=== PATIENT | female | born 1945 | race Caucasian/White ===

== ENCOUNTER → 2019-08-13 | Outpatient (CLI) | payer MEDICARE, BC ==
[2019-08-13 12:52] LABS: APPEARANCE,URINE SLIGHTLY-CLOUDY; BILIRUBIN,URINE NEGATIVE (NEGATIVE); COLOR,URINE YELLOW; GLUCOSE, URINE NEGATIVE (NEGATIVE); KETONES,URINE NEGATIVE (NEGATIVE); LEUKOCYTE ESTERASE,URINE LARGE (NEGATIVE); NITRITE,URINE NEGATIVE (NEGATIVE); PROTEIN,URINE NEGATIVE (NEGATIVE); URINE SPECIFIC GRAVITY 1.023; UROBILINOGEN,URINE NEGATIVE mg/dL (<2.0)
[2019-08-13 12:58] LABS: ABSOLUTE BASOPHILS # (AUTO) 0.1 10^3/uL (0.0-0.2); ABSOLUTE EOSINOPHILS # (AUTO) 0.1 10^3/uL (0.0-0.6); ABSOLUTE LYMPHOCYTES (AUTO) 1.2 10^3/uL (0.5-4.7); ABSOLUTE MONOCYTES (AUTO) 0.5 10^3/uL (0.1-1.4); ABSOLUTE NEUT (AUTO) 2.8 10^3/uL (1.7-8.2); BASOPHILS % (AUTO) 1.1 % (0-2); EOSINOPHILS % (AUTO) 3.1 % (0-6); HEMATOCRIT 37.7 % (36.0-47.0); HEMOGLOBIN 12.5 g/dL (12.0-15.5); LYMPHOCYTES % (AUTO) 25.4 % (13-45); MEAN CORPUSCULAR HGB CONC 33.1 g/dL (32.0-36.0); MEAN CORPUSCULAR VOLUME 90 fl (80-97); MONOCYTES % (AUTO) 10.9 % (3-13); PLATELET COUNT 232 10^3/uL (150-450); RED BLOOD COUNT 4.17 10^6/uL (3.72-5.28); RED CELL DISTRIBUTION WIDTH 14.1 % (11.5-14.0); SEGMENTED NEUTROPHILS % (AUTO) 59.5 % (42-78); TOTAL CELLS COUNTED % (AUTO) 100 %; WHITE BLOOD COUNT 4.7 10^3/uL (4.0-10.5)
--- NOTE | 2019-08-13 13:01 | RADIOLOGY REPORT (SQ) ---
EXAM DESCRIPTION: CHEST PA/LATERAL COMPLETED DATE/TIME: 08/13/2019 12:21 pm REASON FOR STUDY: PRE-OP COMPARISON: None. EXAM PARAMETERS: NUMBER OF VIEWS: two views TECHNIQUE: Digital Frontal and Lateral radiographic views of the chest acquired. RADIATION DOSE: NA LIMITATIONS: none FINDINGS: LUNGS AND PLEURA: No opacities, masses or pneumothorax. No pleural effusion. MEDIASTINUM AND HILAR STRUCTURES: No masses or contour abnormalities. HEART AND VASCULAR STRUCTURES: Heart normal size. No evidence for failure. BONES: No acute findings. HARDWARE: None in the chest. OTHER: Small to moderate-sized hiatal hernia. Partially visualized hardware upper lumbar spine. Pr ior cholecystectomy. IMPRESSION: 1. NO SIGNIFICANT RADIOGRAPHIC FINDING IN THE CHEST. 2. Hiatal hernia. TECHNICAL DOCUMENTATION: JOB ID: [id number] [employer]- All Rights Reserved Reading location - IP/workstation name: [email or web address]
[2019-08-13 13:25] LABS: ALBUMIN 3.9 g/dL (3.5-5.0); ANION GAP 8 (5-19); BLOOD UREA NITROGEN 30 mg/dL (7-20); C-REACTIVE PROTEIN 18.2 mg/L (<10.0); CALCIUM 9.3 mg/dL (8.4-10.2); CARBON DIOXIDE 26 mmol/L (22-30); CHLORIDE 105 mmol/L (98-107); GLUCOSE 79 mg/dL (75-110); POTASSIUM 4.6 mmol/L (3.6-5.0)
--- NOTE | 2019-08-13 13:27 | EKG REPORT ---
SEVERITY:- ABNORMAL ECG - SINUS RHYTHM RBBB AND LAFB LEFT VENTRICULAR HYPERTROPHY : Confirmed by: Hector Garcia MD 13-Aug-2019 13:26:26
[2019-08-13 13:40] LABS: ERYTHROCYTE SEDIMENTATION RATE 27 mm/hr (0-30)
== END ==
LOC: OD 11:31
PROVIDERS: ATTEND Orthopaedic Surgery
DX: Z01.810 Encounter for preprocedural cardiovascular examination (principal); Z01.812 Encounter for preprocedural laboratory examination; Z01.818 Encounter for other preprocedural examination; M17.12 Unilateral primary osteoarthritis, left knee; T84.093S Other mechanical complication of internal left knee prosthesis, sequela; R82.5 Elevated urine levels of drugs, medicaments and biological substances; K44.9 Diaphragmatic hernia without obstruction or gangrene
CPT/HCPCS: 36415; 71046; 80048; 81001; 82040; 82306; 83036; 84134; 85025; 85652; 86140; 87086; 87088; 87186; 93005; 93010

== ENCOUNTER 2019-09-03 05:23 | Inpatient (IN) | payer MEDICARE, BC ==
[~2019-09-03 05:23] MED LIST: ACETAMINOPHEN 325 MG TABLET ONE; ACETAMINOPHEN 325 MG TABLET PO PRN; CEFAZOLIN 2 GM/D5W RTU 2 GM/50 ML RTUPB IV PRN; CEFAZOLIN SODIUM 2 GM in DEXTROSE 5%-WATER 100 ML IV PRN; CELECOXIB 200 MG CAPSULE ONE; CELECOXIB 200 MG CAPSULE PO PRN; GABAPENTIN 100 MG CAPSULE ONE; GABAPENTIN 100 MG CAPSULE PO PRN; LACTATED RINGERS 1000 ML IV PRN; LIDOCAINE 0.5% INJ-PF (5 MG/ML) 50 ML SDV SUBCUT PRN; ONDANSETRON HCL INJ/PF 4 MG/2 ML SDV IV PRN; ONDANSETRON HCL INJ/PF 4 MG/2 ML SDV ONE; OXYCODONE HCL SR 10 MG TABLET PO ONE; OXYCODONE HCL SR 10 MG TABLET PO PRN; TRAMADOL HCL 50 MG TABLET ONE; TRAMADOL HCL 50 MG TABLET PO PRN; TRANEXAMIC ACID INJ/PF 1,000 MG/10 ML SDV IV PRN; VANCOMYCIN HCL 1,000 MG in DEXTROSE 5%-WATER 250 ML IV PRN
[2019-09-03] MEDS ORDERED: MIDAZOLAM 2 MG/2 ML INJ ONE (06:39)
[2019-09-03] MEDS ORDERED: PROPOFOL INJ 200 MG/20 ML VIAL IV ONE ×3 (06:39→10:08)
[2019-09-03] MEDS ORDERED: FENTANYL CITRATE INJ/PF 100 MCG/2 ML AMPUL ONE (06:39)
[2019-09-03] MEDS ORDERED: TRANEXAMIC ACID INJ/PF 1,000 MG/10 ML SDV ONE ×2 (07:03→12:01)
[2019-09-03] MEDS ORDERED: BUPIVACAINE HCL 0.25 % INJ/PF (2.5 MG/1 ML) 30 ML VIAL ONE (07:16)
[2019-09-03] MEDS ORDERED: BACITRACIN INJ 50,000 UNIT VIAL ONE (07:17)
[2019-09-03] MEDS ORDERED: VANCOMYCIN HCL INJ 1000 MG VIAL ONE (07:17)
[2019-09-03] MEDS ORDERED: GENTAMICIN SULFATE INJ 80 MG/2 ML VIAL ONE (07:17)
[2019-09-03] MEDS ORDERED: KETOROLAC TROMETHAMINE 60 MG/2 ML SDV ONE (07:18)
[2019-09-03] MEDS ORDERED: PROMETHAZINE HCL INJ 25 MG/1 ML VIAL IV PRN (08:34)
[2019-09-03] MEDS ORDERED: MEPERIDINE HCL/PF INJ 25 MG/1 ML DISP.SYRIN IV PRN (08:34)
[2019-09-03] MEDS ORDERED: FENTANYL CITRATE INJ/PF 100 MCG/2 ML AMPUL IV PRN ×3 (08:34)
[2019-09-03] MEDS ORDERED: BACITRACIN INJ 50,000 UNIT VIAL IR ONE (08:53)
[2019-09-03] MEDS ORDERED: GENTAMICIN SULFATE INJ 80 MG/2 ML VIAL IV ONE (08:56)
[2019-09-03] MEDS ORDERED: ROPIVACAINE HCL 0.5% INJ/PF (5 MG/1 ML) 30 ML SDV ONE (09:08)
[2019-09-03] MEDS ORDERED: LIDOCAINE 2%/EPINEPHRINE INJ 20 ML VIAL ONE (09:08)
[2019-09-03] MEDS ORDERED: LIDOCAINE 2% INJ (20 MG/ML) 20 ML MDV ONE (09:08)
[2019-09-03] MEDS ORDERED: BUPIVACAINE HCL 0.25 % INJ/PF (2.5 MG/1 ML) 30 ML VIAL INJ ONE (10:41)
[2019-09-03] MEDS ORDERED: KETOROLAC TROMETHAMINE 60 MG/2 ML SDV IM ONE (10:52)
--- NOTE | 2019-09-03 11:18 | Operative Report ---
Operative Report DATE OF SURGERY: 09/03/19 PREOPERATIVE DIAGNOSIS: Left failed partial unicompartmental knee arthroplasty POSTOPERATIVE DIAGNOSIS: Left failed unicompartmental partial knee arthroplasty OPERATION: Conversion of left unicompartmental arthroplasty to total knee arthroplasty SURGEON: LAMONT MA JR ANESTHESIA: Spinal TISSUE REMOVED OR ALTERED: none COMPLICATIONS: None ESTIMATED BLOOD LOSS: 50 cc INTRAOPERATIVE FINDINGS: Healthy-appearing tissue, no overt inflammation or signs of infection. PROCEDURE: Components: Left total knee: 60 femur, 71 x 16 tibia, and a 31 patella BRIEF HISTORY: 74year old female presented to my clinic with a failed left unicompartmental arthroplasty that had proceeded to progress to tricompartmental disease. The implant appeared stable and she had had this implanted over 10 years ago. Infection work-up was performed that showed that she was negative for infection both on blood work as well as some a-1 defensin. She failed conservative management and continued to have debilitating pain that prevented her from performing ADLs including limited ambulation, and decreased quality of life. We had a thorough discussion regarding risks and benefits of surgery. Risks include but are not limited to bleeding, infection, anesthesia, , injury to nerve or vessel, pain, scar, leg length inequality, dislocation, future surgery, and blood clots. Patient read through the pre-op counseling form and signed and solicited for surgery on their left knee. After medical clearance is in preoperative optimization she was scheduled for left knee conversion total arthroplasty. OPERATIVE PROCEDURE: Patient was brought to the operating room on and underwent final anesthesia. After proper anesthesia was obtained, patient was positioned, padded, prepped, and draped in the usual sterile fashion on the operating room table. 2 grams of Ancef and 1 g of vancomycin were given. Appropriate time out was performed. Anterior incision and medial-parapatella approach was performed incorporating the prior medial limited incision. Severe degenerative arthritis was noted. The knee otherwise appeared healthy, synovial fluid was clear, and there was no signs of infection. Osteophytes were removed from the femur and tibia, and the remainder of the ACL and PCL were removed. The distal tibia was everted and a cut guide was placed to allow for appropriate tibial resection, was then sized to a 71 tibia. After this evaluation of the medial compartment revealed that there was adequate bone removed and there was no defect from the prior medial unicompartmental prosthesis. We then turned our attention to the femur. The distal femur was drilled, the canal was irrigated and the distal femoral guide was placed. We then removed the femoral component with careful attention to retain as much bone as possible. The distal femur was cut to 5 degrees of varus. There remained adequate bone on the medial condyle after the distal femoral cut. The tensor was placed in extension and noted to have valgus soft tissue tension as per the goniometer on the tensor. To gain more exposure we proceeded by completing the patella cut and preparing the patella for the patellar button. Prior to the cut this measured at 24 mm of thickness and after applying the button it remained at 24 mm. 31 mm patella was used for adequate coverage. The lateral release was performed through the IT band and subsequent application of the tensor demonstrated optimal balance. The gap was then checked with a 12 mm block. The knee was then brought into flexion the tensor was placed intense to 60 pounds of pressure. The femur was measured to a 60 and then a block was applied for a 10 mm cut with the appropriate rotation set by the tensor. The AP block was placed and anterior-posterior cuts were made. Posterior osteophytes were removed and the flexion gap measured to be 10 mm and confirmed by placement of a 12mm spacer block. The femoral notch and chamfer cuts were made, and trial femur placed which had excellent fit. The rotating tibial plastic was placed and rotation marked. The stemmed tibial cutout was made for the stemmed tibial trial and excellent stability was had in flexion and extension. The patella tracked well. Cement fixation places made on the femur and tibia, and pulsatile irrigation of the paul and soft tissue surfaces. The paul surfaces were cleaned and dried, and cementation of the femur, tibia, and patella. Periarticular injection with Marcaine and Toradol was performed. The knee was irrigated with antibiotic solution, betadine solution, and antibiotic solution. A gram of Vancomycin was placed intra-articularly. The extensor mechanism was closed with number 2 Stratofix, the subcutaneous tissue closed with 2-0 Vicryl and the skin closed with 3-0 running monocryl followed by Dermabond tape. A silver dressing was applied. All needle sponge and instrument counts were correct. Patient was awakened from sedation anesthesia and taken to recovery room in good condition. Lamont Ma DO
[2019-09-03] MEDS ORDERED: OXYCODONE HCL IR 5 MG TABLET PO PRN (12:07)
[2019-09-03] MEDS ORDERED: MORPHINE SULFATE 10 MG/ML INJ IV PRN (12:08)
[2019-09-03] MEDS ORDERED: PANTOPRAZOLE SODIUM 20 MG TABLET.DR PO PRN (12:10)
[2019-09-03] MEDS ORDERED: DIPHENHYDRAMINE HCL 25 MG CAPSULE PO PRN (12:10)
[2019-09-03] MEDS ORDERED: ZOLPIDEM TARTRATE 5 MG TABLET PO PRN (12:11)
--- NOTE | 2019-09-03 12:12 | RADIOLOGY REPORT (SQ) ---
EXAM DESCRIPTION: KNEE LEFT 2 VIEWS COMPLETED DATE/TIME: 09/03/2019 11:54 am REASON FOR STUDY: POST OP T84.093S [facility] COMPL OF INTERNAL LEFT KNEE PROSTHESIS, SEQUEL M17.12 UNIL ATERAL PRIMARY OSTEOARTHRITIS, LEFT KNEE COMPARISON: None. NUMBER OF VIEWS: Two views. TECHNIQUE: AP and lateral radiographic images acquired of the left knee. LIMITATIONS: None. FINDINGS: MINERALIZATION: Normal. BONES: Status post left POLO. The hardware is appropriate position. There is no periprosthetic fract ure. The subcutaneous and intra-articular air are expected in the immediate postoperative period. JOINT: As above. SOFT TISSUES: As above. OTHER: No other finding. IMPRESSION: Status post left POLO with expected immediate postoperative findings. TECHNICAL DOCUMENTATION: JOB ID: [id number] [employer]- All Rights Reserved Reading location - IP/workstation name: [email or web address]
[2019-09-03] MEDS ORDERED: DOCUSATE SODIUM 100 MG CAPSULE PO PRN (12:13)
[2019-09-03] MEDS ORDERED: ONDANSETRON 4 MG TAB.RAPDIS PO PRN (12:14)
[2019-09-03] MEDS ORDERED: NORMAL SALINE 1000 ML 1,000 ML IV PRN (12:15)
[2019-09-03] MEDS: KETOROLAC TROMETHAMINE INJ/PF 30 MG/1 ML SDV IV SCH ×2 (14:18→21:31)
[2019-09-03] MEDS: OXYCODONE HCL IR 5 MG TABLET PO PRN ×3 (14:18→23:51)
[2019-09-03] MEDS: CEFAZOLIN SODIUM 2 GM in DEXTROSE 5%-WATER 100 ML IV SCH ×2 (14:19→21:32)
[2019-09-03] MEDS ORDERED: INFLUENZA QUAD (6MOS+) 2019-20 VAC 0.5 ML SYR IM ONE (14:51)
[2019-09-03] MEDS ORDERED: GABAPENTIN 100 MG CAPSULE PO SCH (18:00)
[2019-09-04 01:23] VITALS: BP 107/56
[2019-09-04] MEDS: OXYCODONE HCL IR 5 MG TABLET PO PRN ×2 (04:21→09:14)
[2019-09-04] MEDS: KETOROLAC TROMETHAMINE INJ/PF 30 MG/1 ML SDV IV SCH (06:49)
[2019-09-04] MEDS ORDERED: GABAPENTIN 300 MG CAPSULE PO ONE (09:15)
[2019-09-04] MEDS ORDERED: FAMOTIDINE 20 MG TABLET PO SCH (10:00)
[2019-09-04] MEDS ORDERED: POLYETHYLENE GLYCOL 3350 POWDER 17 GM/1 PACKET PO SCH (10:00)
[2019-09-04] MEDS ORDERED: CELECOXIB 200 MG CAPSULE PO SCH (10:00)
[2019-09-04] MEDS ORDERED: ASPIRIN 325 MG TABLET PO SCH (10:00)
[2019-09-04] MEDS ORDERED: HYDROCHLOROTHIAZIDE 12.5 MG TABLET PO SCH (10:00)
[2019-09-04] MEDS ORDERED: VALSARTAN 80 MG TABLET PO SCH (10:00)
[2019-09-04] MEDS ORDERED: OMEGA-3 ACID ETHYL ESTERS 1 GM CAPSULE PO SCH (10:00)
[2019-09-04] MEDS ORDERED: CELECOXIB 100 MG CAPSULE PO SCH (10:00)
[2019-09-04] MEDS ORDERED: BUPROPION HCL 75 MG TABLET PO SCH (10:00)
[2019-09-04] MEDS ORDERED: GABAPENTIN 300 MG CAPSULE PO SCH (14:00)
[2019-09-04] MEDS ORDERED: ACETAMINOPHEN 325 MG TABLET PO SCH (14:00)
--- NOTE | 2019-09-06 06:54 | PDOC DISCHARGE SUMMARY ---
Impression - Admit/DC Date/PCP Admission Date/Primary Care Provider: 09/03/19 05:23 DONOVAN ROSE MD Discharge Date: 09/04/19 - Assessment Summary: The patient is a very pleasant 74-year-old with previously had a left partial knee arthroplasty that had failed and progressed to lateral compartment and patellofemoral compartment osteoarthritis, with associated valgus deformity. She tried multiple other options including physical therapy steroid injections and conservative management including [id number] pain medications and activity modification without any relief. X-rays revealed subchondral sclerosis and osteophyte formation without obvious implant loosening. We discussed risks benefits and options for treating her left knee progressive osteoarthritis and after multiple visits in the office she had determined that it was prudent to proceed with a left total knee arthroplasty conversion. After being brought to the operating room and undergoing her left total knee arthroplasty the patient was then admitted to the hospital floor for postoperative care and pain control. She did very well with physical therapy who also deemed her stable for discharge. She had no acute events or complications of the course of her stay and was stable for discharge on postoperative day #1. All instructions were provided to her in detail from the office the patient was able to leave on postoperative day #1. - Additional Information Resuscitation Status: Full Code Discharge Diet: Regular Discharge Activity: Activity As Tolerated, No Driving, Keep Legs Elevated, Supervised Activity, Walk Frequently Referrals: CHANELLE MA JR, DO [ACTIVE PROVISIONAL STAFF] - 09/10/19 8:20 am ( LEFT KNEE) Prescriptions: Oxycodone HCl [Oxy-Ir 5 mg Tablet] 5 mg PO Q4HP PRN 15 Days #30 tablet PRN Reason: Home Medications: Bupropion HCl [Wellbutrin 75 mg Tablet] 150 mg PO Q12 08/15/19 Celecoxib [Celebrex 200 mg Capsule] 200 mg PO Q12 08/15/19 Hydrocodone/Acetaminophen [[place] 10-325 mg Tablet] 1 tab PO Q4HP PRN 08/15/19 [place]-3 Fatty Acids/Fish Oil [Fish Oil 1,000 mg Capsule] 1,000 unit PO DAILY 08/15/19 Valsartan/Hydrochlorothiazide [Valsartan-Hctz 80-12.5 mg Tab] 1 tab PO DAILY 08/15/19 Gabapentin [Neurontin 300 mg Capsule] 600 mg PO Q8 09/03/19 Multivitamin [Tab-A-Rafal (Multiple Vitamin) Tablet] 1 tab PO DAILY 09/03/19 Potassium Chloride [Klor-Con M20] 20 meq PO BID 09/03/19 Ranitidine HCl [Zantac] 150 mg PO BID 09/03/19 Aspirin [Aspirin 325 mg Tablet] 325 mg PO DAILY tablet 09/04/19 Celecoxib [Celebrex 100 mg Capsule] 100 mg PO DAILY capsule 09/04/19 Docusate Sodium [Colace 100 mg Capsule] 100 mg PO TIDP PRN capsule 09/04/19 Oxycodone HCl [Oxy-Ir 5 mg Tablet] 5 mg PO Q4HP PRN 15 Days #30 tablet 09/04/19 History of Present Illiness History of Present Illness: JUANY GRANADOS is a 74 year old female Physical Exam Vital Signs: Temp Pulse Resp BP Pulse Ox 98.8 F 77 18 107/56 L 92 09/04/19 11:19 09/04/19 11:19 09/04/19 11:19 09/04/19 11:19 09/04/19 11:19 Intake & Output 09/04/19 09/05/19 09/06/19 06:59 06:59 06:59 Intake Total 1710 1240 Output Total 1210 Balance 500 1240 Weight 104.9 kg Results Laboratory Results: Potassium 4.2 mmol/L (3.6-5.0) 09/03/19 06:18 Impressions: Knee X-Ray 09/03/19 00:00 IMPRESSION: Status post left POLO with expected immediate postoperative findings. Stroke Is this a Stroke Patient?: No Stroke Pt being discharged on Anti-thrombolytic therapy?: Yes Acute Heart Failure - Is this a Heart Failure Patient?: No
== END 2019-09-04 13:39 | disposition home or self-care (01) | DRG 909 ==
LOC: INOR 05:23 → 4S 12:15
PROVIDERS: ADMIT Orthopaedic Surgery; ATTEND Orthopaedic Surgery
PROC: 0SPD0LZ Removal of Medial Unicondylar Synthetic Substitute from Left Knee Joint, Open Approach (ICD-10-PCS; 2019-09-03)
PROC: 0SRD0J9 Replacement of Left Knee Joint with Synthetic Substitute, Cemented, Open Approach (ICD-10-PCS; principal; 2019-09-03 07:30)
DX: T84.093S Other mechanical complication of internal left knee prosthesis, sequela (principal); M25.762 Osteophyte, left knee; Z79.899 Other long term (current) drug therapy; Z79.891 Long term (current) use of opiate analgesic; Z98.1 Arthrodesis status; Z88.6 Allergy status to analgesic agent; Z88.3 Allergy status to other anti-infective agents; Z88.2 Allergy status to sulfonamides
CPT/HCPCS: 01402; 36415; 84132; 87070; 87075; 87205; J0690; J1580; J1885; J2250; J2270; J2405; J2704; J2795; J3010; J3370; J3490; J7030; J7060; S0119